=== PATIENT | male | born 1950 | race Caucasian/White ===

== ENCOUNTER 2017-06-01 05:54 | Day surgery (SDC) | payer MEDICARE, OTHER ==
[2017-06-01] MEDS ORDERED: Lactated Ringers 1,000 ML IV SCH (06:30)
[2017-06-01] MEDS ORDERED: DIPRIVAN 200 MG/20 ML IV ONE (08:00)
[2017-06-01] MEDS ORDERED: Versed 2 MG/2 ML Injection IV ONE (08:00)
[2017-06-01] MEDS ORDERED: Lactated Ringers 1,000 ML IV ONE (08:18)
--- NOTE | 2017-06-01 08:45 | OP ---
SURGERY DATE: 06/01/17 SURGERY TIME: 755 PREOPERATIVE DIAGNOSIS: 1. WEIGHT LOSS. POSTOPERATIVE DIAGNOSIS: 1. MILD GASTRITIS. 2. NORMAL COLON. PROCEDURE: 1. Esophagogastroduodenoscopy. 2. Colonoscopy. SURGEON: Dr. Lai. ANESTHESIA: MAC. BRIEF HISTORY: The patient is a 67 y/o WM patient whose reports he has been having problems with up to 30 pounds weight loss over the past year unexplained. The patient has previously had a colonoscopy 10 years ago which was normal. The patient was felt to need to have endoscopic evaluation. He was appraised of the risks of the procedure including the risk of perforation, phlebitis, untoward reaction to medication, bleeding, and missed lesions. The patient verbalized his understanding and desired to have the procedure performed. DESCRIPTION OF PROCEDURE: The patient was given the medications by the Anesthesia Department. He had continuous pulse oximetry, ECG monitoring, intermittent BP monitoring, and end tidal CO2 monitoring during the examination. He was placed in the left lateral decubitus position. A bite block was placed and the flexible Olympus gastroscope was used to intubate the oropharynx. A view of the larynx was obtained and was normal. The scope was easily introduced in the esophagus which appeared to be normal throughout its length. The stomach was entered where normal gastric rugal folds were seen. The gastric light was suctioned dry and the stomach was reinsufflated. The gastric rugal folds distended nicely with the insufflation of air. The scope was passed along the greater curvature of the stomach to the antrum. The pylorus was encountered and appeared to be mildly erythematous, but no erosions or ulcerations were noted. The pylorus was intubated. The duodenum was inspected and found to be normal. The scope was withdrawn towards the stomach. Again, a retroflex view was obtained of the lesser curvature, fundus, and cardia regions of the stomach. These appeared to be normal. The scope was then withdrawn. With careful inspection upon withdrawal, no mucosal lesions were encountered. Next, a digital rectal examination was performed and revealed normal anal sphincter tone, no masses, and a normal prostate. The flexible Olympus pediatric colonoscope was used to intubate the rectum. A view of the colon was developed sequentially to the cecum. Upon insertion and withdrawal, including a retroflex view in the rectum, no mucosal lesions were encountered. The scope was removed from the patient who tolerated the procedure well and was sent back to OP recovery in good condition. The prep was noted to be fair.
[2017-06-01 08:58] VITALS: O2SAT 97
[2017-06-01 09:40] VITALS: BP 121/61; PULSE 73
== END 2017-06-01 09:40 | disposition home or self-care (01) ==
LOC: SDC 05:54
PROVIDERS: ATTEND Family Medicine
PROC: 0DJ08ZZ Inspection of Upper Intestinal Tract, Via Natural or Artificial Opening Endoscopic (ICD-10-PCS; principal; 2017-06-01)
PROC: 0DJD8ZZ Inspection of Lower Intestinal Tract, Via Natural or Artificial Opening Endoscopic (ICD-10-PCS; 2017-06-01)
DX: K29.70 Gastritis, unspecified, without bleeding (principal); E11.9 Type 2 diabetes mellitus without complications; Z79.4 Long term (current) use of insulin; E78.5 Hyperlipidemia, unspecified
CPT/HCPCS: 00740; 00810; J2250; J2704